=== PATIENT | male | born 2000 | race Caucasian/White ===

== ENCOUNTER 2024-09-07 10:18 | Emergency (ER) | payer OTHER, SELFPAY ==
[2024-09-07 10:42] VITALS: BP 148/91; PULSE 77; RESP 16; TEMP 36.6; O2SAT 99
--- NOTE | 2024-09-07 11:21 | ED_ITS ---
HPI - Male Genitourinary General Chief complaint: Urogenital-Male Stated complaint: KNOT ON L TESTICLE Time Seen by Provider: 09/07/24 11:06 Source: patient and RN notes reviewed Mode of arrival: ambulatory Limitations: no limitations History of Present Illness HPI Narrative: Patient presents today complaining of pain and left testicle. Reports aching in the testicle x4 days and noted a, ?hard lump? to the testicle since last night. It is painful to touch. Reports that ice helped last night and currently rates pain 4/10. No urinary symptoms to include dysuria, frequency, urethral discharge. Patient is transgender and identifies as female. Related Data Home Medications ?Medication ?Instructions ?Recorded ?Confirmed ?Last Taken ?Type aripiprazole 10 mg tablet mg 09/07/24 Unknown History bupropion HCl 150 mg 24 hr tablet, mg PO 09/07/24 Unknown History extended release estradiol valerate 20 mg/mL mg IM 09/07/24 Unknown History intramuscular oil needle (disp) 18 G 18 gauge x 1 09/07/24 09/07/24 Unknown History 1/2 (BD Regular Bevel [place]) spironolactone 100 mg tablet mg 09/07/24 Unknown History Allergies Allergy/AdvReac Type Severity Reaction Status Date / Time kiwi Allergy Unknown Unknown Verified 09/07/24 10:42 Review of Systems Review of Systems: CONSTITUTIONAL: Denies body aches, fever, chills, or sweats. EYES: Denies visual changes, redness, or discharge. ENT: Denies rhinorrhea, congestion, sore throat, or otalgia. CARDIOVASCULAR: Denies chest pain, palpitations, or edema. RESPIRATORY: Denies cough or dyspnea. GASTROINTESTINAL: Denies abdominal pain, nausea, vomiting, or diarrhea. GENITOURINARY: Left testicular pain and mass SKIN: Denies rash, itching, or wounds. MUSCULOSKELETAL: Denies back pain, joint pain, or myalgia. NEUROLOGIC: Denies headache, numbness, tingling, or weakness. PSYCH: Denies depression or anxiety. [facility] Social History Social History (Updated 09/07/24 @ 11:24 by Diandra Stephen, HEALTH AND SAFETY COORDINATOR, [place]) Additional gender identity comments: Identifies as female Comments At time of signature, I have reviewed and agree with nursing past medical, surgical, social and family history unless otherwise noted. Please see nursing chart for further information. There is no relevant family history pertinent to the presenting complaint Exam Narrative: GENERAL: Well-appearing, well-nourished, and in no acute distress. HEAD: Normocephalic, atraumatic. EYES: EOMI. No redness or drainage. Conjunctivae normal. ENT: Mucous membranes pink and moist. NECK: Normal AROM. CHEST: No respiratory distress. :Night Clerk Auditor S. Giovannyraleigho RT. Left testicular tenderness. No appreciable mass. No erythema or induration noted to the scrotum. EXTREMITIES: Normal range of motion. No edema. SKIN: Warm, dry, no rash. Capillary refill normal. Normal skin turgor. NEURO: No focal deficits. Alert and oriented x3. Gait steady. PSYCH: Normal affect. No signs of depression or anxiety. Course Course Level of Care: Express Care Visit Vital Signs Vital signs: Vital Signs Temperature 98 F 09/07/24 10:42 Pulse Rate 77 09/07/24 10:42 Respiratory Rate 16 09/07/24 10:42 Blood Pressure 148/91 H 09/07/24 10:42 Pulse Oximetry 99 09/07/24 10:42 Temperature 98 F 09/07/24 10:42 Pulse Rate 77 09/07/24 10:42 Respiratory Rate 16 09/07/24 10:42 Blood Pressure 148/91 H 09/07/24 10:42 Pulse Oximetry 99 09/07/24 10:42 Review Transfer Transfered to: Gm Transfer rationale: Testicular pain Accepting physician: Lenny Toth comments: Report given to JUDI Rosa MDM - Male Genitourinary MDM Narrative Medical decision making narrative: Patient will be transferred to the ER for further evaluation. Differential Diagnosis Differential diagnosis: Likely epididymitis and other (varicocele) Critical Care Time Critical Care Time Critical Care Time: No Discharge Plan Discharge Clinical Impression: Left testicular pain Patient Disposition: Acute Care Hospital Condition: Stable Patient Language: Korean Prescriptions: No Action spironolactone 100 mg tablet (DME) BD Regular Bevel [place] 18 gauge x 1 1/2 needle MISCELLANEOUS estradiol valerate 20 mg/mL oil IM aripiprazole 10 mg tablet bupropion HCl 150 mg tablet extended release 24 hr PO Follow-up/Referrals: Coleen,JUDI Macias [Primary Care Provider] - Time of Disposition: 11:28
== END 2024-09-07 11:22 | disposition short-term general hospital (02) ==
PROVIDERS: Emergency Provider Nurse Practitioner; PCP Registered Nurse
DX: N50.812 Left testicular pain (principal); F64.0 Transsexualism
CPT/HCPCS: 99212; 99213; G0463

== ENCOUNTER 2024-09-07 11:44 | Emergency (ER) | payer OTHER, SELFPAY ==
--- NOTE | ~2024-09-07 | US_ITS ---
TESTICULAR ULTRASOUND (Doppler ultrasound interrogation techniques used as needed for this exam.) Ordering provider: Brad Valenzuela MD History: . left testicular mass . Comparison: None. FINDINGS: TESTICLES: Normal in size. The right measures 3.5x 1.7x 1.9 cm and the left measures 3.1x 1.6x 1.9 cm . Normal echogenicity bilaterally without mass lesion. Normal Doppler flow bilaterally. Stick areas seen in the left testicular measuring 0.3 x 0.2 x 0.3 cm. EPIDIDYMIDES: Normal in size. The right measures 1.3 cm and the left 1.1 cm. Normal echogenicity bila terally. Both demonstrate normal Doppler flow. 2 small cystic areas are seen in the left epididymis. HYDROCELE: None. VARICOCELE: None. OTHER ABNORMALITY: None seen. IMPRESSION: Left testicular cystic area. 2 small cystic areas in the left epididymis. Otherwise, normal testicula r ultrasound. Reviewed, dictated and finalized at location A. VISION AGENT IMPRESSION: Left testicular cystic area. 2 small cystic areas in the left epididymis. Other marcum, normal testicular ultrasound.
[2024-09-07 12:02] VITALS: BP 149/77; PULSE 83; RESP 20; TEMP 36.4; O2SAT 99
--- NOTE | 2024-09-07 12:24 | PC.NURSE ---
Patient ambulatory to ultrasound with US tech
--- NOTE | 2024-09-07 12:57 | PC.NURSE ---
Patient returned from Ultrasound with steady gait
--- NOTE | 2024-09-07 13:52 | ED.MALEGU ---
HPI - Male Genitourinary General Chief complaint: Urogenital-Male Stated complaint: mass on testicle Time Seen by Provider: 09/07/24 12:03 Source: patient Mode of arrival: ambulatory Limitations: no limitations History of Present Illness HPI Narrative: 23-year-old with a history of transitioning into female presents to the ER with the complaints of small mass on his left testicle noticed that this morning. He denies any trauma. Complaint: testicle pain Onset (ago): day(s) (1) Duration: constant Location: left testicle Severity: mild Exacerbating factors: none Associated symptoms: Reports denies other symptoms Related Data Home Medications ?Medication ?Instructions ?Recorded ?Confirmed ?Last Taken ?Type aripiprazole 10 mg tablet mg 09/07/24 Unknown History bupropion HCl 150 mg 24 hr tablet, mg PO 09/07/24 Unknown History extended release estradiol valerate 20 mg/mL mg IM 09/07/24 Unknown History intramuscular oil needle (disp) 18 G 18 gauge x 1 09/07/24 09/07/24 Unknown History 1/2 (BD Regular Bevel [place]) spironolactone 100 mg tablet mg 09/07/24 Unknown History Allergies Allergy/AdvReac Type Severity Reaction Status Date / Time kiwi Allergy Unknown Unknown Verified 09/07/24 10:42 Review of Systems Review of Systems: All systems reviewed & are unremarkable except as noted in HPI and below Constitutional: Constitutional: Reports no additional constitutional complaints ENT: Reports system reviewed and no additional complaints, except as documented Respiratory: Respiratory: Reports no additional respiratory complaints Genitourinary: Genitourinary: Reports as per HPI Musculoskeletal: Musculoskeletal: Reports no additional musculoskeletal complaints Integumentary/Breasts: Skin/Breast: Reports system reviewed and no additional complaints, except as docu Neurologic: Reports system reviewed and no additional complaints, except as documented PMFSH Social History Social History Additional gender identity comments: Identifies as female Exam Narrative: GENERAL: Well-appearing, well-nourished, and in no acute distress. HEAD: Normocephalic, atraumatic. EYES: PERRLA and EOMI. NECK: Supple. CHEST: Clear to auscultation. No respiratory distress. HEART: Regular rate and rhythm. No murmur heard. Normal peripheral pulses. both testes descended no obvious palpable mass. Nontender testicle on palpation EXTREMITIES: Normal range of motion. No edema. SKIN: Warm, dry, no rash. NEURO: No focal deficits. Alert and oriented x3. PSYCH: Normal mood and affect. Course Course Emergency Course: Notified patient about his ultrasound findings most likely epididymal cyst advised him to follow with the urology as needed. Vital Signs Vital signs: Vital Signs Temperature 36.4 C L 09/07/24 12:02 Pulse Rate 83 09/07/24 12:02 Respiratory Rate 20 09/07/24 12:02 Blood Pressure 149/77 H 09/07/24 12:02 Pulse Oximetry 99 09/07/24 12:02 Oxygen Delivery Room Air 09/07/24 12:02 Temperature 36.4 C L 09/07/24 12:02 Pulse Rate 83 09/07/24 12:02 Respiratory Rate 20 09/07/24 12:02 Blood Pressure 149/77 H 09/07/24 12:02 Pulse Oximetry 99 09/07/24 12:02 Oxygen Delivery Room Air 09/07/24 12:02 MDM - Male Genitourinary Imaging Data Radiologist's impression: ITS Impressions Scrotum Ultrasound 09/07/24 13:12 IMPRESSION: Left testicular cystic area. 2 small cystic areas in the left epididymis. Otherwise, normal testicular ultrasound. Discharge Plan Discharge Clinical Impression: Epididymal cyst Patient Disposition: Home, Self-Care Condition: Stable Instructions: Testicle Pain (ED) Patient Language: Luxembourgish Prescriptions: No Action spironolactone 100 mg tablet (DME) BD Regular Bevel [place] 18 gauge x 1 1/2 needle MISCELLANEOUS estradiol valerate 20 mg/mL oil IM aripiprazole 10 mg tablet bupropion HCl 150 mg tablet extended release 24 hr PO Follow-up/Referrals: Coleen,JUDI Macias [Primary Care Provider] - Time of Disposition: 13:57
[2024-09-07 14:07] VITALS: BP 146/78; PULSE 81; RESP 18; TEMP 36.4; O2SAT 98
== END 2024-09-07 14:11 | disposition home or self-care (01) ==
PROVIDERS: Emergency Provider Family Medicine; PCP Registered Nurse
DX: N50.3 Cyst of epididymis (principal); F64.0 Transsexualism; Z79.890 Hormone replacement therapy
CPT/HCPCS: 76870; 93976; 99284